=== PATIENT | female | born 1975 | race Caucasian/White ===

== ENCOUNTER 2017-09-10 15:50 | Emergency (ER) | payer MEDICAID, OTHER, SELFPAY ==
[~2017-09-10] VITALS: Ht 167.6 cm; Wt 75.0 kg
[2017-09-10 17:47] LABS: RAPID GROUP A STREP NEGATIVE (NEGATIVE)
[2017-09-10 18:05] LABS: INFLUENZA TYPE A NEGATIVE FOR TYPE A (NEGATIVE); INFLUENZA TYPE B NEGATIVE FOR TYPE B (NEGATIVE)
[2017-09-10 18:49] VITALS: BP 144/83
== END 2017-09-10 18:53 | disposition home or self-care (01) ==
LOC: EMS 15:56
DX: J32.9 Chronic sinusitis, unspecified (principal); J02.9 Acute pharyngitis, unspecified; I10 Essential (primary) hypertension
CPT/HCPCS: 87430; 87804; 93005; 99285

== ENCOUNTER 2023-05-16 06:57 | Emergency (ER) | payer OTHER ==
[~2023-05-16] VITALS: Ht 162.6 cm; Wt 80.9 kg
[2023-05-16] MEDS ORDERED: KETOROLAC TROMETHAMINE 30 MG/ML VIAL IVP ONE (07:15)
[2023-05-16 07:25] VITALS: TEMP 97.5
[2023-05-16] MEDS ORDERED: KETOROLAC TROMETHAMINE 15 MG/ML VIAL IVP ONE (07:30)
[2023-05-16 07:51] LABS: ANION GAP 8 mmol/L (8-16); CALCIUM, TOTAL 9.4 mg/dL (8.8-10.5); CARBON DIOXIDE 27 mmol/L (22-29); CHLORIDE 101 mmol/L (98-107); CREATININE 0.68 mg/dL (0.60-1.30); GLOMERULAR FILTR. RATE CALC > 60 mL/min (>60); GLUCOSE,RANDOM 126 mg/dL (70-110); POTASSIUM 3.7 mmol/L (3.5-5.1); SODIUM SERUM 136 mmol/L (136-145); UREA NITROGEN, BLOOD 15 mg/dL (7-18)
[2023-05-16 07:52] LABS: BASOPHILS % (AUTO) 0.4 % (0.0-2.0); EOSINOPHILS % (AUTO) 0.7 % (1.0-6.0); HEMATOCRIT 38.7 % (36-46); HEMOGLOBIN 13.4 g/dL (12.0-16.0); LYMPHOCYTES # (AUTO) 2.7 K/uL (1.0-4.8); LYMPHOCYTES % (AUTO) 31.7 % (22.0-44.0); MEAN CORPUSCULAR HEMOGLOBIN 31.7 pg (26.0-34.0); MEAN CORPUSCULAR HGB CONC 34.5 G/dL (31.0-37.0); MEAN CORPUSCULAR VOLUME 92 fL (80-100); MONOCYTES # (AUTO) 0.7 K/uL (0.1-1.0); MONOCYTES % (AUTO) 8.5 % (2.0-9.0); NEUTROPHILS # (AUTO) 5.1 K/uL (1.8-7.7); NEUTROPHILS % (AUTO) 58.7 % (40.0-70.0); PLATELET COUNT (AUTO) 391 K/uL (150-450); RED BLOOD CELL COUNT(AUTO) 4.21 MIL/uL (4.00-5.20); RED CELL DISTRIBUTION WIDTH 13.1 % (11.5-14.5); WHITE BLOOD COUNT (AUTO) 8.6 K/uL (4.5-11.0)
[2023-05-16] MEDS ORDERED: SODIUM CHLORIDE 0.9% 100 ML ONE (08:00)
[2023-05-16] MEDS ORDERED: IOHEXOL 350 MG/ML 100 ML VIAL ONE (08:00)
[2023-05-16 08:02] LABS: ALANINE AMINOTRANSFERASE 49 U/L (12-78); ALBUMIN 3.8 g/dL (3.4-5.0); ALKALINE PHOSPHATASE 89 U/L (46-116); ASPARTATE AMINOTRANSFERASE 23 U/L (15-37); BILIRUBIN,TOTAL 0.4 mg/dL (0.1-1.0); HCG,QUANTITATIVE 2 mIU/mL (0-6); LIPASE 64 U/L (16-77); TOTAL PROTEIN, SERUM 7.8 g/dL (6.4-8.2)
[2023-05-16 08:31] LABS: APPEARANCE,URINE CLEAR (CLEAR); BILIRUBIN,URINE NEGATIVE (NEGATIVE); COLOR,URINE LIGHT YELLOW (YELLOW); GLUCOSE, URINE (UA) NEGATIVE (NEGATIVE); KETONES,URINE NEGATIVE (NEGATIVE); LEUKOCYTE ESTERASE ,URINE NEGATIVE (NEGATIVE); NITRATE,URINE NEGATIVE (NEGATIVE); OCCULT BLOOD,URINE TRACE (NEGATIVE); PROTEIN,URINE NEGATIVE (NEGATIVE); SPECIFIC GRAVITIY, URINE 1.017 (1.003-1.030); UROBILINOGEN,URINE <=1.0 mg/dL (<=1.0)
[2023-05-16 08:45] LABS: RBC,URINE 0-2 /HPF (0-2); WBC,URINE 0-2 /HPF (0-5)
[2023-05-16 08:46] LABS: BACTERIA,URINE None Seen /HPF (None Seen); SQUAMOUS EPITHELIAL CELL,UR Few /LPF (None Seen)
[2023-05-16 09:05] VITALS: BP 151/88; PULSE 76; RESP 16
[2023-05-16] MEDS ORDERED: IBUP-1492 PO (09:09)
[2023-05-17] MEDS ORDERED: TRAM-559 PO (18:56)
== END 2023-05-16 09:24 | disposition home or self-care (01) ==
LOC: EMS 06:58
DX: D21.9 Benign neoplasm of connective and other soft tissue, unspecified (principal); R10.32 Left lower quadrant pain
CPT/HCPCS: 99285; 74177; 96374; 76830; 76856; 80053; 81001; 83690; 84702; 85025; 36415; J1885; Q9967; J7050

== ENCOUNTER 2023-05-17 14:57 | Emergency (ER) | payer OTHER ==
[~2023-05-17] VITALS: Ht 162.6 cm; Wt 86.4 kg
[~2023-05-17 14:57] MED LIST: IBUP-1492 PO
[2023-05-17 15:04] VITALS: TEMP 98.7
[2023-05-17] MEDS ORDERED: KETOROLAC TROMETHAMINE 30 MG/ML VIAL IM ONE (15:45)
[2023-05-17] MEDS ORDERED: TraMADol HCL 50 MG TABLET PO ONE (15:45)
[2023-05-17 15:54] LABS: BASOPHILS % (AUTO) 0.4 % (0.0-2.0); EOSINOPHILS % (AUTO) 0.4 % (1.0-6.0); HEMATOCRIT 38.7 % (36-46); HEMOGLOBIN 13.2 g/dL (12.0-16.0); LYMPHOCYTES # (AUTO) 2.3 K/uL (1.0-4.8); LYMPHOCYTES % (AUTO) 22.2 % (22.0-44.0); MEAN CORPUSCULAR HEMOGLOBIN 31.3 pg (26.0-34.0); MEAN CORPUSCULAR HGB CONC 34.1 G/dL (31.0-37.0); MEAN CORPUSCULAR VOLUME 92 fL (80-100); MONOCYTES # (AUTO) 0.7 K/uL (0.1-1.0); MONOCYTES % (AUTO) 7.3 % (2.0-9.0); NEUTROPHILS # (AUTO) 7.1 K/uL (1.8-7.7); NEUTROPHILS % (AUTO) 69.7 % (40.0-70.0); PLATELET COUNT (AUTO) 375 K/uL (150-450); RED BLOOD CELL COUNT(AUTO) 4.23 MIL/uL (4.00-5.20); RED CELL DISTRIBUTION WIDTH 12.9 % (11.5-14.5); WHITE BLOOD COUNT (AUTO) 10.2 K/uL (4.5-11.0)
[2023-05-17 16:14] LABS: ANION GAP 7 mmol/L (8-16); CALCIUM, TOTAL 9.8 mg/dL (8.8-10.5); CARBON DIOXIDE 29 mmol/L (22-29); CHLORIDE 102 mmol/L (98-107); CREATININE 0.62 mg/dL (0.60-1.30); GLOMERULAR FILTR. RATE CALC > 60 mL/min (>60); GLUCOSE,RANDOM 118 mg/dL (70-110); POTASSIUM 3.9 mmol/L (3.5-5.1); SODIUM SERUM 138 mmol/L (136-145); UREA NITROGEN, BLOOD 11 mg/dL (7-18)
[2023-05-17 16:18] LABS: APPEARANCE,URINE CLEAR (CLEAR); BILIRUBIN,URINE NEGATIVE (NEGATIVE); COLOR,URINE COLORLESS (YELLOW); GLUCOSE, URINE (UA) NEGATIVE (NEGATIVE); KETONES,URINE TRACE mg/dL (NEGATIVE); LEUKOCYTE ESTERASE ,URINE TRACE (NEGATIVE); NITRATE,URINE NEGATIVE (NEGATIVE); OCCULT BLOOD,URINE NEGATIVE (NEGATIVE); PROTEIN,URINE NEGATIVE (NEGATIVE); SPECIFIC GRAVITIY, URINE 1.008 (1.003-1.030); UROBILINOGEN,URINE <=1.0 mg/dL (<=1.0)
[2023-05-17 16:27] LABS: ALANINE AMINOTRANSFERASE 49 U/L (12-78); ALBUMIN 3.9 g/dL (3.4-5.0); ALKALINE PHOSPHATASE 81 U/L (46-116); ASPARTATE AMINOTRANSFERASE 26 U/L (15-37); BILIRUBIN,TOTAL 0.4 mg/dL (0.1-1.0); HCG,QUANTITATIVE 1 mIU/mL (0-6); LIPASE 24 U/L (16-77); TOTAL PROTEIN, SERUM 7.7 g/dL (6.4-8.2)
[2023-05-17 16:29] LABS: BACTERIA,URINE None Seen /HPF (None Seen); RBC,URINE None Seen /HPF (0-2); SQUAMOUS EPITHELIAL CELL,UR Few /LPF (None Seen); WBC,URINE 0-2 /HPF (0-5)
[2023-05-17 16:40] VITALS: BP 162/91; PULSE 78; RESP 20
[2023-05-17] MEDS ORDERED: TRAM-559 PO (18:56)
== END 2023-05-17 19:09 | disposition home or self-care (01) ==
LOC: EMS 15:10
DX: D21.9 Benign neoplasm of connective and other soft tissue, unspecified (principal); R10.32 Left lower quadrant pain
CPT/HCPCS: 99284; 80053; 81001; 83690; 84702; 85025; 36415; 74022; 96372; J1885

== ENCOUNTER 2024-01-14 12:34 | Emergency (ER) | payer OTHER ==
[~2024-01-14] VITALS: Ht 162.6 cm; Wt 79.1 kg
[~2024-01-14 12:34] MED LIST changes: +TRAM50TA5 PO
[2024-01-14 12:41] VITALS: BP 143/88; PULSE 100; RESP 18; TEMP 98.6
[2024-01-14] MEDS: BACITRACIN 0.9 GM PACKET OINTMENT TP ONE (14:50)
[2024-01-14] MEDS: IBUPROFEN 600 MG TABLET PO ONE (14:50)
[2024-01-14] MEDS: CEPHALEXIN MONOHYDRATE 500 MG CAPSULE PO ONE (14:50)
[2024-01-14] MEDS: ACETAMINOPHEN 500 MG TABLET PO ONE (14:50)
[2024-01-14] MEDS: PERTUSS(ACELL),DIPH,TET/PF 0.5 ML SYRINGE [ADULT] IM. ONE (14:51)
[2024-01-14] MEDS ORDERED: CEPH-558 PO (15:43)
[2024-01-14] MEDS ORDERED: ACET-2080 PO (15:43)
[2024-01-14] MEDS ORDERED: IBUP-1554 PO (15:43)
[2024-01-14] MEDS ORDERED: BACI28.410 TP (15:43)
== END 2024-01-14 16:49 | disposition home or self-care (01) ==
LOC: EMS 12:36
DX: T23.221A Burn of second degree of single right finger (nail) except thumb, initial encounter (principal); T31.0 Burns involving less than 10% of body surface
CPT/HCPCS: 16020; 90471; 90715; 99284